=== PATIENT | female | born 2000 | race Two or more races ===

== ENCOUNTER 2025-03-13 23:46 | Emergency (ER) | payer OTHER, SELFPAY ==
--- NOTE | 2025-03-14 00:12 | ED_ITS ---
Discharge Plan Disposition Patient Disposition: Home, Self-Care Referrals Follow up/Referrals: Provider,Referral, MD [Primary Care Provider, Medical] - See instructions Activity Restrictions/Add. Instructions Additional Instructions/Restrictions: Recommend taking Benadryl as needed for hives and itching. Consider taking a longer acting daily antihistamine such as cetirizine or loratadine. If symptoms continue to persist, see your PCP and/or follow-up with an maintenance instructor. Clinical Impressions Clinical Impression: Acute idiopathic urticaria Print Language Print Language: Upper Sorbian Discharge ED Provider: Hussein Arechiga General Adult HPI General Chief complaint: Allergic Reaction Stated complaint: bumps all over, face swelling, itching Time Seen by Provider: 03/14/25 00:00 History of Present Illness HPI narrative: 25-year-old female with history of pituitary adenoma presents for itching and rash. She noted symptoms when she woke up around 10 PM this evening. She reports that this happened before. She denies any known allergies. She denies any chest pain abdominal pain shortness of breath nausea vomiting diarrhea etc. no new medications, no new exposures, she did eat some [employer] earlier. She reports she feels like her forte is a bit more swollen than normal. Related Data Allergies Allergy/AdvReac Type Severity Reaction Status Date / Time No Known Allergies Allergy Verified 03/14/25 00:26 [facility] Disclaimer: The information contained in this section may have been updated after the patient was seen, as this information can be updated by other users. Social History Smoking Status: Never smoker alcohol intake: never current occupational status: other Travel in the last 8 weeks?: None ROS Obtained: Yes All systems reviewed & no additional complaints except as documented Physical Exam General General appearance: alert and in no apparent distress Head Head exam: atraumatic and normocephalic Eye Eye exam: Present normal appearance, PERRL and EOMI ENT ENT exam: Present normal oropharynx and normal external ear exam Neck Neck exam: Present normal inspection and full ROM Chest Chest inspection: Present normal inspection and symmetric chest wall rise; Absent tenderness Respiratory Respiratory exam: Present normal lung sounds bilaterally; Absent respiratory distress Cardiovascular Cardiovascular exam: Present regular rate and normal rhythm Abdominal Exam Abdominal exam: Present soft; Absent distention, tenderness or guarding Extremities Exam Extremities exam: Present normal inspection; Absent edema or joint swelling Back Exam Back exam: Present normal inspection; Absent tenderness Neurological Exam Neurological exam: Present alert and oriented X3; Absent motor sensory deficit Psychiatric Psychiatric exam: Present normal affect and normal mood Skin Skin exam: Present warm, dry, normal color and rash (Hives noted) Lymphatic Lymphatic Findings: no adenopathy Medical Decision Making Medical Records Medical records reviewed: Yes I reviewed the patient's medical records. Screening: Per USPSTF and CDC recommendations, given the prevalence of disease in our region, it is our hospital?s policy to screen for HIV and viral Hepatitis for all patients aged 18 and over and those with ongoing risk factors. Valerio Inquiry Pt receiving controlled substance: No Valerio was queried for this patient: No Vital Signs: 03/14/25 00:19 03/14/25 00:27 Temperature 98.0 F 98.0 F Temperature Source Oral Oral Pulse Rate 100 H Pulse Rate [Left Radial] 100 H Respiratory Rate 17 17 Blood Pressure 147/83 H Blood Pressure [Right Arm] 147/83 H Blood Pressure Mean [Right Arm] 104 Blood Pressure Source Automatic Cuff Blood Pressure Source [Right Arm] Automatic Cuff Blood Pressure Position Supine Blood Pressure Position [Right Arm] Supine 02 Sat by Pulse Oximetry 95 Oxygen Delivery Method Room Air Room Air Lab Data Lab results reviewed: Yes I reviewed the patient's lab results. Medical Decision Narrative: 25-year-old female with history of pituitary adenoma presents for a few hours of hives. History was obtained via interactive discussion with patient. On arrival, patient is [afebrile, hemodynamically stable, satting appropriately, alert, oriented x4, GCS 15], moving all extremities spontaneously. Full physical exam performed and significant for hives, no intraoral swelling, no abdominal tenderness, clear lungs bilaterally Differential includes but is not limited to idiopathic urticaria, angioedema, anaphylaxis, allergic reaction. No evidence of anaphylaxis, angioedema or other emergent condition. Unclear underlying etiology, possibly viral. These findings were communicated patient, she was encouraged to use Benadryl and [id number] antihistamines as needed and follow-up with PCP. Strict return precautions are given for signs of emergent condition. Procedures Risk/Benefits of Procedure(s) Were Explained: Yes Critical Care Critical Care Time Critical Care Time: No
[2025-03-14 00:19] VITALS: BP 147/83; PULSE 100; RESP 17; TEMP 36.7; O2SAT 95; BMI 28.3
--- OUTSIDE RECORDS SUMMARY | 2025-03-14 00:20 | XMS_ITS | Continuity of Care Document ---
Author Organization [facility], ENDOCRINOLOGY [place] Address [address] [place] [address] Care Team Providers Care Basting Puller Name Role Phone MARYAM CRAWFORD Retoucher Photoengraving STEFAN CERRATO Primary Care Provider Assessment No assessment recorded. Plan of Treatment Reminders Order Date Submit Date Provider Last Modified By Organization Details Last Modified Time Details Appointments ANNUA L METHODS SPECIALIST ENGINEER 2024 03:45P M DR JACOBS Not available Not available Not available NEW PATIE NT O 2025 09:15A M NAVID BANUELOS MD Not available Not available Not available RECHE CK 2025 01:30P M MARYAM CRAWFORD APRN Not available Not available Not available Lab None recor ded. Referral neuro logis t refer ral - frequ ent heada ches with leida l prola ctin level s. histo ry of pitui tary micro adeno ma. [address] [facility] Neurology, [address] [facility], [place], [address], 02/27/2025 14:14:48 Procedures None recor ded. Surgeries None recor ded. Imaging None recor ded. Medication Orders caber golin e 0.5 mg table t 2024 025 [facility] [place], [address], 02/27/2025 08:55:29 Patient TargetsNo targets recorded. Patient InstructionsNo instructions recorded. Reason for Referral Neurologist Referral for Pit uitary microadenoma frequent headaches with normal prolactin levels. history of pituitary microadenoma. Referring Physician: Maryam Crawford, Endocrinology, Encounter Date: 02/27/2025 Results Created Date Observation Date Name Description Value Unit Range Abnormal Flag Note LastModifiedBy Organization Detail LastModifiedTime 02/28/20 25 02/27/2025 [facility] prolactin 9.03 NG/mL 4.79-2 3.30 normal Refer ence range is based on non-p regna nt women . Not Available [facility] [address] [place] [address], [phone], 02/27/2025 09:18:43 Result Notes None recorded. Problems Name Problem SNOMED Code Status Onset Date Resolution Date Notes Provider Name and Address Organization Details Recorded Time Hyperprolactin emia 343159470 Active 2023 ELI CERVANTES MD [address] [place] [id number] [place] [address] 4 14:02:48 Pituitary microadenoma 098456474 Active 2024 STEFAN CERRATO PA-C [address] [place] [phone] [place] [address] 5 13:01:51 Problem Notes Documentation Provider Name and Address Organization Details Recorded Time Endocrinology Consult Note : [place] [id number] DIAZ (Legal name: Zari Harrison) (id #[id number], : 2000) [address] [address] Encounter Summary - Progress Note Date Printed: 02/27/2025 Documents sent via fax will include the followingmessage: This fax may contain sensitive and confidential personal health information that is being sent for the sole use of the intended recipient. Unintended recipients are directed to securely destroy any materials received. You are hereby notified that the unauthorized disclosure or other unlawful use of this fax or any personal health information is prohibited. To the extent patient information contained in this fax is subject to 42 CFR Part 2, this regulation prohibits unauthorized disclosure of these records. If you received this fax in error, please visit [email or web address] to notify the sender and confirm that the information will be destroyed. If you do not have internet access, please call to notify the sender and confirm that the information will be destroyed. Thank you for your attention and cooperation. [ID:[id number]] Patient Zari Cain (25yo, F) #[id number] 2000 Patient Demographics: Address [address] [place] [address] Work Phone Encounter Notes: Encounter Reason/DateNone recorded 02/27/2025 - 08:45AM - ENDOCRINOLOGY [place] History of Present IllnessSophie is a 25-year-old female presents office today for follow-up on pituitary microadenoma, currently on cabergoline therapy at 0.25 mg once a week and is tolerating without difficulty.She does state some improvement in symptoms associated with hyperprolactinemia and states menstrual cycles have returned, however she does continue to report frequent headaches. Review of SystemsROS as noted in the HPI Vitals Ht: 5 ft 1 in02/27/2025 08:28 am Wt: 150 lbs104/29/2024 08:37 am BMI: 28.311 08:37 am BP: 118/7002/27/2025 08:39 am Pulse: 76 bpm02/27/2025 08:39 am Results/Interpretations Physical ExamConstitutional:General Appearance: healthy-appearing, well-nourished, well-developed, not anxious/nervous, and no sweating. Level of Distress: no acute distress. Ambulation: ambulating normally. Eyes:Lids and Conjunctivae: no discharge, pallor, lid lag, or periorbital edema and non-injected. Neck:Neck: supple, trachea midline, no masses, and full range of motion. Thyroid: no enlargement or nodules and non-tender. Lymph Nodes: no anterior cervical LAD, posterior cervical LAD, submandibular LAD, submental LAD, preauricular LAD, or supraclavicular LAD. Cardiovascular:Heart Auscultation: normal S1 and S2 and regular rate and rhythm. Lungs:Auscultation: breath sounds normal, good air movement, clear to auscultation, and no wheezing. Musculoskeletal::Motor Strength and Tone: normal tone and motor strength. Joints, Bones, and Muscles: normal movement of all extremities. Extremities: no edema. Neurologic:Gait and Station: normal gait and station. Psychiatric:Insight: good judgement and insight. Mental Status: normal mood and affect, no diffuse anxiety or paranoid ideations, and active and alert. Orientation: to time, place, and person. Procedure DocumentationNone recorded Assessment and Plan1. Pituitary microadenoma-Initial prolactin 120 March 2024MRI brain with attention to pituitary from May 15, 2024 showed: Cystic-appearing lesion in the anterior aspect of the pituitary gland which may represent a cystic pituitary microadenoma or benign cyst. Patient currently taking cabergoline 0.25 mg once a week and is tolerating without difficulty.She does state some improvement in symptoms associated with hyperprolactinemia and states menstrual cycles have returned, however she does continue to report frequent headaches.Most recent labs from today show prolactin level now within normal range at 9.03 RecommendationsWe will continue current cabergoline therapy at 0.25 mg once a weekFollow-up in 3 monthsNeurology consult for frequent headaches. Patient states understanding of the above plan of care and with no questions or concerns at this time.D35.2: Benign neoplasm of pituitary gland cabergoline 0.5 mg tablet - Take 0.5 tablet(s) every week by oral route for 90 days. Qty: (7) tablet Refills: 1 Pharmacy: [facility] NEUROLOGIST REFERRAL - Schedule Within: provider's discretion Note to Provider: frequent headaches with normal prolactin levels. history of pituitary microadenoma.Place of service: OFFICE Procedure code: 65951, 51939, 39561, 12430, [address], [address], [address]339, [address] Return to Office ELI JACOBS MD for ANNUAL METHODS SPECIALIST ENGINEER at [facility] on 04/02/2025 at 03:45 PM MARYAM CRAWFORD APRN for RECHECK at ENDOCRINOLOGY on 06/05/2025 at 01:30 PM Patient Medical History: Allergies List Reviewed Allergies NKDA Medications Reviewed Medications NameDate Source cabergoline 0.5 mg tabletTake 0.5 tablet(s) every week by oral route for 90 days. Note:Take 1/2 tablet every Uvcmxa28/11/25 prescribed MARYAM CRAWFORD APRN clotrimazole-betamethasone 1 %-0.05 % topical creamAPPLY TO THE AFFECTED AND SURROUNDING AREAS OF SKIN BY TOPICAL ROUTE 2 TIMES PER DAY IN THE MORNING AND EVENING FOR 2 WEEKS Internal Note:PRN105/24/23 prescribed STEFAN CERRATO PA-C Family HistoryFamily History not reviewed (last reviewed 06/21/2024) Maternal Grandmother - Diabetes mellitus Past Medical HistoryPast Medical History not reviewed (last reviewed 06/21/2024) Asthma:Y-As a child Vaccine HistoryNone recorded Electronically Signed by: MARYAM CRAWFORD APRN, PRESCHOOL SPECIAL EDUCATION TEACHER STEFAN CERRATO PA-C [address] [place] [address], [phone], [facility] 02/27/2025 13:01:55 Medical Equipment None Reported. Allergies No known drug allergies Medications Name Sig Start Date Stop Date Status Note LastModified by Organization Details LastModified Time clotrimazole -betamethaso ne 1 %-0.05 % topical cream APPLY TO THE AFFECTED AND SURROUNDING AREAS OF SKIN BY TOPICAL ROUTE 2 TIMES PER DAY IN THE MORNING AND EVENING FOR 2 WEEKS 2023 active PRN Not Available Not Available Not Avai lable cabergoline 0.5 mg tablet Take 0.5 tablets every week by oral route for 90 days. 2024 active Not Available Not Available Not Avai lable Vitals Date Recorded Body height Body mass index (BMI) Body weight Heart rate Systolic And Diastolic Provider Name and Address Organization Details Last Updated DateTime 02/27/2025 154.94 cm 28.3 kg/m2 67119.86 g 76 /min 118/70 mm[Hg] Joelle Morton [facility] 02/27/2025 08:39:26 Social History Question Answer Notes LastModified by Organizat ion Details LastModified Time Tobacco Smoking Status Never Smoker Kristopher Herndon [facility] 03/23/2024 15:09:10 What Is Your Level Of Caffeine Consumption? None Information not available 03/28/2024 What Was The Date Of Your Most Recent Tobacco Screening? 03/28/2024 Information not available 03/28/2024 What Is Your Relationship Status? Single [email or web address] Information not available 03/23/2024 Has Tobacco Cessation Counseling Been Provided? No Information not available 03/28/2024 Sex: Female Functional Status Question Answer Note LastModified by Organizat ion Details LastModified Time Do you use any illicit or recreational drugs? No Information not available 03/23/2024 Do you or have you ever used any other forms of tobacco or nicotine? No [email or web address] Information not available 03/23/2024 What is your level of alcohol consumption? None [email or web address] Information not available 03/23/2024 Mental Status None recorded. Family History Relationship Description Onset Age of this Age Resolved Age Notes LastModified by Organization Details LastModified Time Maternal Grandmother Diabetes mellitus [email or web address] Not available 03/23 15:08:54 Medical History Condition Response Coronary Artery Disease N Other N Gout N Atrial Fibrillation N Kidney Stones N Hyperthyroidism N Blood Transfusion N Depression N COPD N Hypothyroidism N Lung Disease N Breast Problem N Difficulty Swallowing N Meniere's disease N Anxiety Disorder N Muscle, Joint, or Bone Problems N Vision or Eye Problems Y Arthritis N Polyps N Infertility N Blood Clot N Cancer N Varicosities N Stroke N Endometriosis N Bladder or Kidney Problems N High Cholesterol N Liver Disease N Fibromyalgia N Headaches Y Kidney Disease N Allergies/Hayfever N Heart Problems N Parkinson's Disease N Ear or Hearing Problems N Hospitalizations N Alzheimer's N Thyroid Problems N GI Problems N Skin Problems Y Eating Disorder N Anemia N Constipation Y Mental Illness N Ovarian Cancer N Diabetes N Seizures/Epilepsy N Tuberculosis N Eczema Y Diverticulitis N Asthma Y Reflux/GERD Y Sleep Apnea N GERD/Reflux Y Hepatitis N Heart Disease N Pulmonary Embolism N Pre-Eclampsia N Hypertension N Chronic Ear Infections N Osteoporosis N Chicken Pox Y Thrombophilias N Gynecological History Statement/Question Response Abnormal Pap N Flow Moderate Regular Cycles N Date of LMP 07/18/2022 Post Menopausal Bleeding N STIs/STDs N HPV Vaccine N Duration of Flow (days) 5 Age at Menarche 16 Current Control Method None Sexually Active? Y Menses Monthly N LMP Approximate Ovarian Cancer Screening? N Obstetrics History GPAL:G 0 P 0 0 0 0 Immunizations Vaccine Type Date Status Note Provider Nam e and Address Organization Details Recorded Time Tdap 6 completed Not Available [facility] 02/27/2025 12:44:34 meningococcal MCV4, unspecified formulation 9 completed Not Available [facility] 02/27/2025 12:44:34 DTaP-Hep B-IPV 9 completed Not Available [facility] 02/27/2025 12:44:34 Hep A, ped/adol, 2 dose 9 completed Not Available [facility] 02/27/2025 12:44:34 MMRV 9 completed Not Available [facility] 02/27/2025 12:44:34 Pneumococcal conjugate PCV 13 9 completed Not Available [facility] 02/27/2025 12:44:34 HPV9 9 completed Not Available [facility] 02/27/2025 12:44:34 meningococcal B, OMV 9 completed Not Available [facility] 02/27/2025 12:44:34 IPV 9 completed Not Available [facility] 02/27/2025 12:44:34 Hep B, adolescent or pediatric 9 completed Not Available [facility] 02/27/2025 12:44:34 meningococcal B, OMV 9 completed Not Available [facility] 02/27/2025 12:44:34 HPV9 9 completed Not Available [facility] 02/27/2025 12:44:34 Past Encounters Encounter ID Performer Location Encounter Start Date Encounter Closed Date Diagnosis/Indication Diagnosis SNOMED-CT Code Diagnosis ICD10 Code Diagnosis IMO Codes Diagnosis Note [id number] MARYAM CRAWFORD APRN [facility] [address] [place] [address] 02/27/2025 08:26:57 02/27/2025 09:09:50 Pituitary microadenoma 677304770 D35.2 Initial prolactin 120 March 2024MRI brain with attention to pituitary from May 15, 2024 showed: Cystic-francia earing lesion in the anterior aspect of the pituitary gland which may represent a cystic pituitary microadeno ma or benign cyst. Patient currently taking cabergolin e 0.25 mg once a week and is tolerating without difficulty .She does state some improvemen t in symptoms associated with hyperprola ctinemia and states menstrual cycles have returned, however she does continue to report frequent headaches. Most recent labs from today show prolactin level now within normal range at 9.03 Recommenda tionsWe will continue current cabergolin e therapy at 0.25 mg once a weekFollow -up in 3 monthsNeur ology consult for frequent headaches. Patient states understand ing of the above plan of care and with no questions or concerns at this time. Health Concerns Section Related Observation LastModified by Organization Detai ls LastModified Time None Recorded Concern Status LastModified by Organization Details LastModified Time None Recorded Payers Encounter Date Sequence Insurance Name Policy Number Policy Bray Covered Member ID Bray Member ID Guarantor Name 02/27/2025 1 [facility] ([facility]) [id number] Zari Harrison [id number] Zari Harrison Notes Date Note Type Note Provider Name and Address Organization Details Recorded Time 02/27/2025 text/html ROS as noted in the HPI Tressa is a 25-year-old female presents office today for follow-up on pituitary microadenoma, currently on cabergoline therapy at 0.25 mg once a week and is tolerating without difficulty.She does state some improvement in symptoms associated with hyperprolactinemia and states menstrual cycles have returned, however she does continue to report frequent headaches. MARYAM CRAWFORD, TOW TRUCK DRIVER [address] [facility] [place], [address], [facility] 02/27/2025 12:33:36 OBGyn Episode No OBEpisode recorded.
--- OUTSIDE RECORDS SUMMARY | 2025-03-14 00:20 | XMS_ITS | Data Portability ---
Author Organization [facility] Address [address] [place] [address] Care Team Providers Care Storage Facility Rental Clerk Name Role Phone MARYAM CRAWFORD Build Automation Engineer STEFAN CERRATO Primary Care Provider Assessment No assessment recorded. Plan of Treatment Reminders Order Date Submit Date Provider Last Modified By Organization Details Last Modified Time Details Appointments ANNUA L CORE WINDER 2024 03:45P M DR JACOBS Not available Not available Not available NEW PATIE NT O 2025 09:15A M NAVID BANUELOS MD Not available Not available Not available ILYA CK 2025 01:30P M MARYAM CRAWFORD DAY WORKER Not available Not available Not available Lab prola ctin, serum 2024 025 [facility], [address] [place] [address], [id number], 06/19/2024 09:41:18 corti azael, serum or plasm a 2023 024 [facility], [address] [place] [address], [phone], 04/05/2024 10:05:09 prola ctin, serum 2023 024 [facility], [address] [place] [address], [address], 04/05/2024 10:05:06 acth, plasm a 2023 024 [facility], [address] [place] [address], [address], 04/08/2024 19:01:58 insul in, serum 2023 [facility], [address] [place] [address], [address], 04/05/2024 10:05:11 dhea- sulfa te, serum 2023 024 [facility], [address] [place] [address], [address], 04/05/2024 10:05:10 testo stero ne, total , serum 2023 [facility], [address] [place] [address], [address], 04/05/2024 10:05:07 CMP, serum or plasm a 2023 [facility], [address] [place] [address], [address], 04/05/2024 11:49:01 glyco hemog lobin , total , blood 2023 [facility], [address] [place] [address], [address], 04/05/2024 08:56:19 Referral neuro logis t refer ral - frequ ent heada ches with doris l prola ctin level s. histo ry of pitui tary micro adeno ma. 2024 [email or web address] [id number] [facility], [address] [place], [address], 02/27/2025 14:14:48 Procedures None recor ded. Surgeries None recor ded. Imaging None recor ded. Medication Orders caber golin e 0.5 mg table t 2024 [facility] [place], [address], 02/27/2025 08:55:29 caber golin e 0.5 mg table t 2024 025 [facility], [address] [place], [address], 09/27/2024 08:34:24 caber golin e 0.5 mg table t 2024 025 [facility] [place], [address], 06/21/2024 15:20:25 caber golin e 0.5 mg table t 2024 025 [facility] [place], [address], 05/19/2024 15:31:25 Patient TargetsNo targets recorded. Patient InstructionsNo instructions recorded. Reason for Referral Neurologist Referral for Pit uitary microadenoma frequent headaches with normal prolactin levels. history of pituitary microadenoma. Referring Physician: Maryam Crawford, Endocrinology, Encounter Date: 02/27/2025 Results Created Date Observation Date Name Description Value Unit Range Abnormal Flag Note LastModifiedBy Organization Detail LastModifiedTime 03/23/20 24 03/23/2024 BETA HCG, PREGN EITAN beta HCG, <5 m[IU] /mL 0-5 normal EXPEC CLARITA HCG LEVEL S WEEKS OF GESTA TION HCG LEVEL (mIU/ mL) 3 5.8 - 71.2 4 9.5 - 750 5 217 - 7138 6 158 - 31,79 5 7 3697 - 163,5 63 8 32,06 5 - 149,5 71 9 63,80 3 - 151,4 10 10 46,50 9 - 186,9 77 12 27,83 2 - 210,6 12 14 13,95 0 - 62,53 0 15 12,03 9 - 70,97 1 16 9040 - 56,45 1 17 8175 - 55,86 8 18 8099 - 58,17 6 Not Available [facility] [address] [place], [address], 03/23/2024 18:42:06 03/23/20 24 03/23/2024 TSH WITH REFLE X FT4 TSH with reflex FT4 0.738 u[IU] /mL 0.270- 4.200 normal Not Available [facility] [address] [place], [address], 03/23/2024 18:44:10 03/23/20 24 03/23/2024 LUTEN IZING HORMO NE lutenizing hormone 10.7 m[IU] /mL 1.0-95 .6 normal LH EXPEC CLARITA VALUE S WOMEN : FOLLI CULAR PHASE 2.4-1 2.6 mIU/m L OVULA TION PHASE 14.0- 95.6 mIU/m L LUTEA L PHASE 1.0-1 1.4 mIU/m L POSTM ENOPA USE 7.7-5 8.5 mIU/m L . Not Available [facility] [address] [place], [address], 03/23/2024 18:44:12 03/23/20 24 03/23/2024 ESTRA DIOL estradiol 34.4 pg/mL 0.0-39 8.0 normal Refer ence range is based on non-p regna nt women . NOTE: Due to the risk of cross -reac tivit y, the Marvin Estra diol assay used by our labor john ortega not be order ed when monit oring estra diol level s in patie nts being treat ed with Fulve stran t. An alter miya metho d such as LC/MS , which is not expec clarita to show cross -reac tivit y to jyoti Hutchinson be used to measu re estra diol veena ntrat ions. Stero id drugs may inter fere with this test. ESTRA DIOL EXPEC CLARITA VALUE S HEALT HY WOMEN : FOLLI CULAR PHASE 12.4 - 233 pg/mL OVULA TION PHASE 41.0 - 398 pg/mL LUTEA L PHASE 22.3 - 341 pg/mL POSTM ENOPA USE < 5.0 - 138 pg/mL HEALT HY PREGN ANT WOMEN : 1st TRIME STER 154 - 3243 pg/mL 2nd TRIME STER 1561 - 21,28 0 pg/mL 3rd TRIME STER 8525 - > 30,00 0 pg/mL . Not Available [facility] [address] [place] [address], [address], 03/23/2024 18:44:14 03/23/20 24 03/23/2024 FOLLI NERY STIM. HORMO NE follicle stim. hormone 7.3 m[IU] /mL 1.7-13 4.8 normal FSH EXPEC CLARITA VALUE S FEMAL ES: FOLLI CULAR PHASE : 3.5 - 12.5 MIU/M L OVULA TION PHASE : 4.7 - 21.5 MIU/M L LUTEA L PHASE : 1.7 - 7.7 MIU/M L POST MENOP AUSE: 25.8 - 134.8 MIU/M L . Not Available [facility] [address] [place], [address], 03/23/2024 18:44:16 03/23/20 24 03/23/2024 PROLA CTIN prolactin 120.00 NG/mL 4.79-2 3.30 high Refer ence range is based on non-p regna nt women . Not Available [facility] [address] [place], [address], 03/23/2024 18:44:17 03/23/20 24 03/23/2024 PROGE STERO NE, SERUM /PLAS MA progesterone , serum/plasma 0.32 NG/mL 0.00-2 3.90 normal Refer ence range is based on non-p regna nt women . PROGE STERO NE EXPEC CLARITA VALUE S WOMEN : FOLLI CULAR PHASE 0.06 - 0.90 ng/mL OVULA TION PHASE 0.12 - 12.0 ng/mL LUTEA L PHASE 1.83 - 23.9 ng/mL POSTM ENOPA USE 0.00 - 0.13 ng/mL 1st Trime ster 11.0 - 44.3 ng/mL 2nd Trime ster 25.4 - 83.3 ng/mL 3rd Trime ster 58.7 - 214.0 ng/mL . Not Available [facility] [address] [place] [address], [address], 03/23/2024 18:44:19 03/23/20 24 03/23/2024 COMPL ETE BLOOD COUNT white blood cells 8.1 10*3/ uL 3.8-10 .8 normal Not Available [facility] [address] [place] [address], [address], 03/23/2024 19:11:21 03/23/20 24 03/23/2024 COMPL ETE BLOOD COUNT red blood cells 4.76 10*6/ uL 3.80-5 .20 normal Not Available [facility] [address] [place] [address], [address], 03/23/2024 19:11:21 03/23/20 24 03/23/2024 COMPL ETE BLOOD COUNT hemoglobin 13.7 g/dL 12.0-1 6.0 normal Not Available [facility] [address] [place] [address], [address], 03/23/2024 19:11:21 03/23/20 24 03/23/2024 COMPL ETE BLOOD COUNT hematocrit 39.3 % 35.0-4 7.0 normal Not Available [facility] [address] [place] [address], [address], 03/23/2024 19:11:21 03/23/20 24 03/23/2024 COMPL ETE BLOOD COUNT MCV 83 fL 80-100 normal Not Available [facility] [address] [place] [address], [address], 03/23/2024 19:11:21 03/23/20 24 03/23/2024 COMPL ETE BLOOD COUNT MCH 29 pg 26-35 normal Not Available [facility] [address] [place] [address], [address], 03/23/2024 19:11:21 03/23/20 24 03/23/2024 COMPL ETE BLOOD COUNT MCHC 35 g/dL 32-36 normal Not Available [facility] [address] [place] [address], [address], 03/23/2024 19:11:21 03/23/20 24 03/23/2024 COMPL ETE BLOOD COUNT RDW 13.0 % 11.0-1 5.0 normal Not Available [facility] [address] [place] [address], [address], 03/23/2024 19:11:21 03/23/20 24 03/23/2024 COMPL ETE BLOOD COUNT MPV 7.6 fL 6.2-10 .5 normal Not Available [facility] [address] [place] [address], [address], 03/23/2024 19:11:21 03/23/20 24 03/23/2024 COMPL ETE BLOOD COUNT platelet count 354 10*3/ uL 150-40 0 normal Not Available [facility] [address] [place] [address], [address], 03/23/2024 19:11:21 03/23/20 24 03/23/2024 COMPL ETE BLOOD COUNT neutrophil,a bsolute 4.0 10*3/ uL 1.6-8. 4 normal Not Available [facility] [address] [place] [address], [address], 03/23/2024 19:11:21 03/23/20 24 03/23/2024 COMPL ETE BLOOD COUNT lymphocyte,a bsolute 3.3 10*3/ uL 0.4-5. 1 normal Not Available [facility] [address] [place] [address], [address], 03/23/2024 19:11:21 03/23/20 24 03/23/2024 COMPL ETE BLOOD COUNT monocyte,abs olute 0.5 10*3/ uL 0.0-1. 2 normal Not Available [facility] [address] [place] [address], [address], 03/23/2024 19:11:21 03/23/20 24 03/23/2024 COMPL ETE BLOOD COUNT eosinophil,a bsolute 0.3 10*3/ uL 0.0-0. 8 normal Not Available [facility] [address] [place] [address], [address], 03/23/2024 19:11:21 03/23/20 24 03/23/2024 COMPL ETE BLOOD COUNT basophil,abs olute 0.0 10*3/ uL 0.0-0. 3 normal Not Available [facility] [address] [place] [address], [address], 03/23/2024 19:11:21 03/23/20 24 03/23/2024 COMPL ETE BLOOD COUNT % neutrophils 49.3 % 42.0-7 8.0 normal Not Available [facility] [address] [place] [address], [address], 03/23/2024 19:11:21 03/23/20 24 03/23/2024 COMPL ETE BLOOD COUNT % lymphocytes 41.0 % 11.0-4 7.0 normal Not Available [facility] [address] [place] [address], [address], 03/23/2024 19:11:21 03/23/20 24 03/23/2024 COMPL ETE BLOOD COUNT % monocytes 6.1 % 0.0-11 .0 normal Not Available [facility] [address] [place] [address], [address], 03/23/2024 19:11:21 03/23/20 24 03/23/2024 COMPL ETE BLOOD COUNT % eosinophils 3.2 % 0.0-7. 0 normal Not Available [facility] [address] [place] [address], [address], 03/23/2024 19:11:21 03/23/20 24 03/23/2024 COMPL ETE BLOOD COUNT % basophils 0.4 % 0.0-3. 0 normal Not Available [facility] [address] [place] [address], [address], 03/23/2024 19:11:21 03/23/20 24 03/23/2024 COMPL ETE BLOOD COUNT nucleated red cells 0.0 % 0.0-0. 9 normal Not Available [facility] [address] [place] [address], [address], 03/23/2024 19:11:21 03/23/20 24 03/23/2024 COMPL ETE BLOOD COUNT nucleated RBCs, absolute 0.00 10*3/ uL not estab. normal Not Available [facility] [address] [place] [address], [address], 03/23/2024 19:11:21 03/28/20 24 03/30/2024 CHLAM YDIA/ GC, RNA chlamydia trachomatis NEGATI VE negati ve normal Not Available [facility] [address] [place] [address], [address], 03/30/2024 17:14:08 03/28/20 24 03/30/2024 CHLAM YDIA/ GC, RNA N. gonorrhoeae NEGATI VE negati ve normal Test metho dolog y is Nucle ic Acid Ampli ficat ion (NAAT ) Not Available [facility] [address] [place] [address], [address], 03/30/2024 17:14:08 03/28/20 24 03/28/2024 PAP SMEAR Pap smear SEE BELOW normal Depar tment of Patho logy GYNEC OLOGI JUDSON CYTOL OGY REPOR T NAME: KIP THOMAS PATHO LOGY NO.: [id number] 2 Copy to: [facility] E OF SPECI MEN: CERVI JUDSON/E NDOCE RVICA L-THI N PREP RELEV ANT HISTO RY: SPECI MEN ADEQU ACY SATIS FACTO RY FOR EVALU ATION . ENDOC ERVIC AL/TR ANSFO RMATI ON ZONE COMPO NENT PRESE NT GENER AL CATEG ORIZA TION NEGAT KASANDRA FOR INTRA EPITH ELIAL LESIO N OR MALIG CRIS GERALDO MontillaN DOMINIC S, CT (ASCP ) Jayleen d Out Date: 04/04 14:13 Cervi judson/v agina l cytol ogy is a scree rayo test with a recog nized false negat kasandra rate. New techn ologi es may decre ase, but will not elimi miya false negat kasandra resul ts. Regul ar cytol ogy scree rayo is recom petra d to minim ize false negat kasandra resul ts. The ThinP rep(R ) Imagi ng syste m is used to sivan t in prima ry cervi judson cance r scree rayo of ThinP rep(R ) Pap test slide s. Page 1 of 1 Not Available [facility] [address] [place], [address], 04/04/2024 14:13:56 04/05/20 24 04/05/2024 GLYCO HEMOG LOBIN A1C glyco HGB A1C 4.9 % 0.0-5. 6 normal Not Available [facility] [address] [place], [address], 04/05/2024 08:56:19 04/05/20 24 04/05/2024 GLYCO HEMOG LOBIN A1C estimated avg. glucose 94 mg/dL _(ujdson c) normal A1c value s betwe en 5.7% to 6.4% indic ate predi abete s. Resul ts 6.5% or great er is diagn ostic of diabe david. Ameri can Diabe david Assoc iatio n (diab etes. org) Not Available [facility] [address] [place], [address], 04/05/2024 08:56:19 04/05/20 24 04/05/2024 PROLA CTIN prolactin 129.00 NG/mL 4.79-2 3.30 high Refer ence range is based on non-p regna nt women . Not Available [facility] [address] [place] [address], [address], 04/05/2024 10:05:06 04/05/20 24 04/05/2024 TESTO STERO NE, TOTAL testosterone , total 45 NG/dL 8-48 normal Refer ence range is for age 20-49 years . Not Available [facility] [address] [place] [address], [address], 04/05/2024 10:05:07 04/05/20 24 04/05/2024 CORTI AZAEL cortisol 4.64 ug/dL 2.68-1 8.40 normal CORTI AZAEL DORIS L RANGE S: 6 am to 10 am 6.02 - 18.4 ug/dL 4 pm to 8 pm 2.68 - 10.5 ug/dL . Not Available [facility] [address] [place] [address], [address], 04/05/2024 10:05:08 04/05/20 24 04/05/2024 DHEA SULFA TE DHEA sulfate 299.0 ug/dL 148.0- 407.0 normal Not Available [facility] [address] [place] [address], [address], 04/05/2024 10:05:09 04/05/20 24 04/05/2024 INSUL IN insulin 16.1 uu/mL 2.6-24 .9 normal Not Available [facility] [address] [place] [address], [address], 04/05/2024 10:05:11 04/05/20 24 04/05/2024 PREGN EITAN TEST, URINE test,urine NEGATI VE negati ve normal Not Available [facility] [address] [place] [address], [address], 04/05/2024 10:36:45 04/05/20 24 04/05/2024 PREGN EITAN TEST, URINE protein Negati ve mg/dL negati ve normal Not Available [facility] [address] [place] [address], [address], 04/05/2024 10:36:45 04/05/20 24 04/05/2024 PREGN EITAN TEST, URINE blood Negati ve /uL negati ve normal Not Available [facility] [address] [place] [address], [address], 04/05/2024 10:36:45 04/05/20 24 04/05/2024 PREGN EITAN TEST, URINE specific gravity 1.026 1.003- 1.035 normal Not Available [facility] [address] [place] [address], [address], 04/05/2024 10:36:45 04/05/20 24 04/05/2024 COMP. METAB OLIC PANEL glucose 95 mg/dL 74-100 normal Not Available [facility] [address] [place] [address], [address], 04/05/2024 11:49:01 04/05/20 24 04/05/2024 COMP. METAB OLIC PANEL blood urea nitrogen 9 mg/dL 6-20 normal Not Available [facility] [address] [place] [address], [address], 04/05/2024 11:49:01 04/05/20 24 04/05/2024 COMP. METAB OLIC PANEL creatinine 0.70 mg/dL 0.50-0 .95 normal Not Available [facility] [address] [place] [address], [address], 04/05/2024 11:49:01 04/05/20 24 04/05/2024 COMP. METAB OLIC PANEL BUN/creatini ne ratio 13 (calc ) 10-20 normal Not Available [facility] [address] [place] [address], [address], 04/05/2024 11:49:01 04/05/20 24 04/05/2024 COMP. METAB OLIC PANEL sodium 141 mmol/ L 136-14 5 normal Not Available [facility] [address] [place] [address], [address], 04/05/2024 11:49:01 04/05/20 24 04/05/2024 COMP. METAB OLIC PANEL potassium 3.8 mmol/ L 3.4-5. 0 normal Not Available [facility] [address] [place] [address], [address], 04/05/2024 11:49:01 04/05/20 24 04/05/2024 COMP. METAB OLIC PANEL chloride 106 mmol/ L 98-107 normal Not Available [facility] [address] [place] [address], [address], 04/05/2024 11:49:01 04/05/20 24 04/05/2024 COMP. METAB OLIC PANEL carbon dioxide 22 mmol/ L 22-31 normal Not Available [facility] [address] [place] [address], [address], 04/05/2024 11:49:01 04/05/20 24 04/05/2024 COMP. METAB OLIC PANEL anion gap 13 (calc ) 7-25 normal Not Available [facility] [address] [place] [address], [address], 04/05/2024 11:49:01 04/05/20 24 04/05/2024 COMP. METAB OLIC PANEL calcium 9.1 mg/dL 8.6-10 .2 normal Not Available [facility] [address] [place] [address], [address], 04/05/2024 11:49:01 04/05/20 24 04/05/2024 COMP. METAB OLIC PANEL total protein 7.3 g/dL 6.4-8. 3 normal Not Available [facility] [address] [place] [address], [address], 04/05/2024 11:49:01 04/05/20 24 04/05/2024 COMP. METAB OLIC PANEL albumin 4.5 g/dL 3.5-5. 2 normal Not Available [facility] [address] [place] [address], [address], 04/05/2024 11:49:01 04/05/20 24 04/05/2024 COMP. METAB OLIC PANEL globulin 2.8 1.5-4. 5 normal Not Available [facility] [address] [place] [address], [address], 04/05/2024 11:49:01 04/05/20 24 04/05/2024 COMP. METAB OLIC PANEL albumin/glob ulin ratio 1.6 (calc ) 1.1-2. 5 normal Not Available [facility] [address] [place] [address], [address], 04/05/2024 11:49:01 04/05/20 24 04/05/2024 COMP. METAB OLIC PANEL bilirubin, total 0.5 mg/dL 0.1-1. 2 normal Not Available [facility] [address] [place] [address], [address], 04/05/2024 11:49:01 04/05/20 24 04/05/2024 COMP. METAB OLIC PANEL alkaline phosphatase 95 U/L 30-121 normal Not Available [facility] [address] [place] [address], [address], 04/05/2024 11:49:01 04/05/20 24 04/05/2024 COMP. METAB OLIC PANEL AST 21 U/L 0-32 normal Not Available [facility] [address] [place] [address], [address], 04/05/2024 11:49:01 04/05/20 24 04/05/2024 COMP. METAB OLIC PANEL ALT 21 U/L 0-33 normal Not Available [facility] [address] [place] [address], [address], 04/05/2024 11:49:01 04/05/20 24 04/05/2024 COMP. METAB OLIC PANEL GFR 125 >= 60 normal NOT E New calcu latio n for GFR (CKD- EPI 2020) is formu lated witho ut race adjus tment facto rs at the recom menda tion of the Juan J irizarry and Jhonatan Turner ty of Nephr ology . This calcu latio n has not been valid ated in pregn ant women . For pedia tric patie nts refer to https ://babita w.rossy benitez.o rg/pr ofess ional s/KDO QI/gf r_cal culat orPed Not Available [facility] [address] [place] [address], [address], 04/05/2024 11:49:01 04/05/20 24 04/08/2024 ACTH acth 13 pg/mL 6-50 normal Refer ence range appli es only to the speci mens colle cted betwe en 7am-1 0am. Not Available [facility] [address] [place], [address], 04/08/2024 19:01:58 06/20/19 25 06/19/2024 PROLA CTIN prolactin 8.64 NG/mL 4.79-2 3.30 normal Refer ence range is based on non-p regna nt women . Not Available [facility] [address] [place] [address], [address], 06/19/2024 09:41:18 09/28/19 25 09/27/2024 PROLA CTIN prolactin 2.48 NG/mL 4.79-2 3.30 low Refer ence range is based on non-p regna nt women . Not Available [facility] [address] [place], [address], 09/27/2024 09:56:31 11/01/19 25 10/31/2024 PROLA CTIN prolactin 4.10 NG/mL 4.79-2 3.30 low Refer ence range is based on non-p regna nt women . Not Available [facility] [address] [place] [address], [address], 10/31/2024 09:18:27 02/28/20 25 02/27/2025 PROLA CTIN prolactin 9.03 NG/mL 4.79-2 3.30 normal Refer ence range is based on non-p regna nt women . Not Available [facility] [address] [place], [address], 02/27/2025 09:18:43 05/15/1905/15/2024 MRI, brain + pitui tary, w/wo contr ast [facility] [address] [facility] [place] [address] Pauline walsh Name: KIP walsh : 1999 Pauline walsh 08 Orderi ng Provid er: MARYAM CRAWFORD EXAM DATE: 2024 EXAM: MR BRAIN/ PITUIT ELIER W/WO CONTRA ST HISTOR Y: 24-yea r-old female with headac hes, amenor christiane, and hyperp rolact inemia . COMPAR GEOVANNA: None. The patiteetee t did not requir e sedati on for this exam. No POC testin g for eGFR was perfor med due to absenc e of risk factor s. FINDIN GS: The ventri cles are symmet mitzy and normal in size. There is no intrap arench ymal mass. There is no abnorm al extra- axial fluid, intrac ranial hemorr irma, or infarc tion. The diffus ion weight ed sequen erica are normal . There are no perive ntricu lar white matter change s. There is a cystic lesion in the anteri or and right parace ntral aspect of the pituit elier gland. This measur es approx imatel y 6 x 6 x 4 mm. The pituit elier stalk is midlin e. There is no invasi on of the cavern ous sinuse s. After intrav enous admini strati on of 7.[address] ([facility] [address]-0 1), there is no abnorm al enhanc ement or discre te enhanc ing mass in the brain. There is no enhanc ement of the cystic appear ing lesion in the pituit elier gland. The project internship al caroti d and basila r flow-v oids are normal . There is minima l mucosa l thicke rayo in the parana kait sinuse s. There is a small amount of fluid in the right mastoi d air cells. IMPRES AYLIN: 1. There is a cystic -appea ring lesion in the anteri or aspect of the pituit elier gland which may repres ent a cystic pituit elier microa denoma or benign cyst. 2. The brain is otherw ise normal in appear ance. Interp reted By: Mile cardona MD Electr onical ly Signed By: Mile cardona MD on 025 9:[address] Rad[address], [address], 05/16/2024 16:33:05 Result Notes Documentation Provider Name and Address Organization Details Recorded Time Mri, Brain + Pituitary, W/wo Contrast : [address] [address] Patient Name: KIP THOMAS Patient : 2000 Patient Ordering Provider: MARYAM CRAWFORD EXAM DATE: 05/15/2024 EXAM: MR BRAIN/PITUITARY W/WO CONTRAST HISTORY: 24-year-old female with headaches, amenorrhea, and hyperprolactinemia. COMPARISON: None. The patient did not require sedation for this exam. No POC testing for eGFR was performed due to absence of risk factors. FINDINGS: The ventricles are symmetric and normal in size. There is no intraparenchymal mass. There is no abnormal extra-axial fluid, intracranial hemorrhage, or infarction. The diffusion weighted sequences are normal. There are no periventricular white matter changes. There is a cystic lesion in the anterior and right paracentral aspect of the pituitary gland. This measures approximately 6 x 6 x 4 mm. The pituitary stalk is midline. There is no invasion of the cavernous sinuses. After intravenous administration of 7.5 mL Gadavist ([facility] [address]-60), there is no abnormal enhancement or discrete enhancing mass in the brain. There is no enhancement of the cystic appearing lesion in the pituitary gland. The internal carotid and basilar flow-voids are normal. There is minimal mucosal thickening in the paranasal sinuses. There is a small amount of fluid in the right mastoid air cells. IMPRESSION: 1. There is a cystic-appearing lesion in the anterior aspect of the pituitary gland which may represent a cystic pituitary microadenoma or benign cyst. 2. The brain is otherwise normal in appearance. Interpreted By: Mik Bush MD AM CRAWFORD, DAY WORKER [address] [place] [address], [phone], [facility] 05/16/2024 16:33:05 Problems Name Problem SNOMED Code Status Onset Date Resolution Date Notes Provider Name and Address Organization Details Recorded Time Hyperprolactin emia 731209414 Active 2023 ELI CERVANTES MD [address] [place], [place] [id number] 4 14:02:48 Pituitary microadenoma 153069349 Active 2024 STEFAN CERRATO PA-C [address] [place] [address], [phone], [facility] 5 13:01:51 Problem Notes Documentation Provider Name and Address Organization Details Recorded Time Endocrinology Consult Note : [place] [id number] DIAZ (Legal name: Kip Harrison) (id #[id number], : 2000) [address] [address] Encounter Summary - Progress Note Date Printed: 06/21/2024 Documents sent via fax will include the [...] received this fax in error, please visit [email or web address] to notify the sender and confirm that the information will be destroyed. If you do not have internet access, please call to notify the sender and confirm that the information will be destroyed. Thank you for your attention and cooperation. 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 Patient states since starting therapy she has noticed a significant decrease in symptoms associated with hyperprolactinemia. He does state compliance with medication and denies any associated side effects. Voices no questions or concerns at this time. Review of SystemsROS as noted in the HPI Vitals Ht: 5 ft 1 in06/21/2024 02:36 pm Wt: 145 lbs 4 oz06/21/2024 02:36 pm BMI: 27.403 02:36 pm BP: 106/68 sitting R arm06/21/2024 02:40 pm Pulse: 65 bpm [id number]/21/2024 02:40 pm Results/InterpretationsNone recorded Physical ExamConstitutional:General Appearance: healthy-appearing, well-nourished, and well-developed. Level of Distress: NAD. Ambulation: ambulating normally. Psychiatric:Insight: good judgement. Mental Status: normal mood and affect and active and alert. Orientation: to time, place, and person. Memory: recent memory normal and remote memory normal. Head:Head: normocephalic and atraumatic. Eyes:Lids and Conjunctivae: no discharge or pallor and non-injected. Pupils: PERRLA. EOM: EOMI. ENMT:Ears: no lesions on external ear. Hearing: no hearing loss. Nose: no lesions on external nose and nares patent. Lips, Teeth, and Gums: no mouth or lip ulcers or bleeding gums and normal dentition. Oropharynx: no erythema or exudates and moist mucous membranes. Neck:Neck: supple, trachea midline, and no masses. Lymph Nodes: no cervical LAD, supraclavicular LAD, or axillary LAD. Thyroid: no enlargement or nodules and non-tender. Lungs:Respiratory effort: no dyspnea. Percussion: no dullness, flatness, or hyperresonance. Auscultation: breath sounds normal and good air movement. Cardiovascular:Apical Impulse: not displaced. Heart Auscultation: normal S1 and S2 and RRR. Neck vessels: no carotid bruits. Pedal Pulses: normal throughout. Abdomen:Bowel Sounds: normal. Inspection and Palpation: no tenderness or guarding and soft and non-distended. Liver: non-tender. Spleen: non-tender. Musculoskeletal::Motor Strength and Tone: normal tone and motor strength. Joints, Bones, and Muscles: no contractures, malalignment, tenderness, or bony abnormalities and normal movement of all extremities. Extremities: no cyanosis or edema. Neurologic:Gait and Station: normal gait and station. Sensation: grossly intact. Reflexes: DTRs 2+ bilaterally throughout. Skin:Inspection and palpation: no rash, lesions, or ulcer and good turgor. Nails: normal. Back:Thoracolumbar Appearance: normal curvature. Procedure DocumentationNone recorded Assessment and Plan1. Pituitary microadenoma-On March 23, 2024 lab work showed:Prolactin 120MRI brain with attention to pituitary from May 15, 2024 shows:IMPRESSION: 1. There is a cystic-appearing lesion in the anterior aspect of the pituitary gland which may represent a cystic pituitary microadenoma or benign cyst.Patient currently taking cabergoline 0.25 mg twice a week and is tolerating without difficulty. Patient states significant improvement in symptoms associated with hyperprolactinemia. Most recent labs from June 19, 2024 show prolactin level now within normal range 8.64. Recommendations We will continue current cabergoline therapy at 0.25 mg twice a week. Will follow-up in office in 3 months and repeat lab work. Patient states understanding of the above plan of care and with no questions or concerns at this time.D35.2: Benign neoplasm of pituitary gland cabergoline 0.5 mg tablet - Take 0.5 tablet(s) twice a week by oral route for 90 days. Qty: (13) tablet Refills: 0 [facility]: [facility] Return to Office MARYAM CRAWFORD APRN for RECHECK at ENDOCRINOLOGY on 09/27/2024 at 08:00 AM ELI JACOBS MD for ANNUAL CORE WINDER at [facility] on 04/02/2025 at 03:45 PM Patient Medical History: Allergies List Reviewed Allergies NKDA Medications Reviewed Medications NameDate Source cabergoline 0.5 mg tabletTake 0.5 tablet(s) twice a week by oral route for 90 days. Note:Take 1/2 tablet every Wednesday and .06/21/24 prescribed MARYAM CRAWFORD APRN clotrimazole-betamethasone 1 %-0.05 % topical creamAPPLY TO THE AFFECTED AND SURROUNDING AREAS OF SKIN BY TOPICAL ROUTE 2 TIMES PER DAY IN THE MORNING AND EVENING FOR 2 WEEKS Internal Note:PRN105/24/23 prescribed STEFAN CERRATO PA-C Family HistoryReviewed Family History Maternal Grandmother - Diabetes mellitus Past Medical HistoryReviewed Past Medical History Asthma:Y-As a child Vaccine HistoryNone recorded Electronically Signed by: MARYAM CRAWFORD APRN, DOCUMENT PREPARER MICROFILMING STEFAN CERRATO PA-C [address] [place] [address], [phone], [facility] 06/21/2024 15:37:35 Endocrinology Consult Note : [address] [address]OCHFZBushra DIAZ (Legal name: Kip Harrison) (id #[id number], : 2000) [address] [address] Encounter Summary - Progress Note Date Printed: 09/27/2024 Documents sent via fax will include the [...] received this fax in error, please visit [email or web address] to notify the sender and confirm that the information will be destroyed. If you do not have internet access, please call to notify the sender and confirm that the information will be destroyed. Thank you for your attention and cooperation. [ID:[id number]] Patient Miguel CamilouezKip (24yo, F) #[id number] 2000 Patient Demographics: Address [address] [place] [address] Work Phone Encounter Notes: Encounter Reason/DateNone recorded 09/27/2024 - 08:00AM - ENDOCRINOLOGY [facility] History of Present IllnessSophie is a 24-year-old female who presents office today for follow-up on hyperprolactinemia currently on cabergoline therapy and tolerating without difficulty. Review of SystemsROS as noted in the HPI Vitals Ht: 5 ft 1 in09/27/2024 08:11 am Wt: 138 lbs 3.2 oz With [id number]/27/2024 08:11 am BMI: 26.106 08:11 am BP: 112/72 sitting L arm09/27/2024 08:13 am Results/InterpretationsNone recorded Physical ExamConstitutional:General Appearance: healthy-appearing, well-nourished, well-developed, not [...] attention to pituitary from May 15, 2024 shows:IMPRESSION: 1. There is a cystic-appearing lesion in the anterior aspect of the pituitary gland which may represent a cystic pituitary microadenoma or benign cyst. Patient currently taking cabergoline 0.25 mg twice a week and is tolerating without difficulty.She does state improvement in symptoms associated with hyperprolactinemia, however she is with complaints of occasional headache.Most recent labs from June 19, 2024 show prolactin level now within normal range 8.64. RecommendationsWill obtain prolactin level today call patient with these results.We will continue current cabergoline therapy at 0.25 mg twice a week.Will follow-up in office in 4 months and repeat lab work. Patient states understanding of the above plan of care and with no questions or concerns at this time.D35.2: Benign neoplasm of pituitary gland cabergoline 0.5 mg tablet - Take 0.5 tablet(s) twice a week by oral route for 90 days. Qty: (13) tablet Refills: 1 [facility]: [facility] Return to Office MARYAM CRAWFORD APRN for RECHECK at ENDOCRINOLOGY SB on 01/31/2025 at 08:15 AM ELI JACOBS MD for ANNUAL CORE WINDER at [facility] on 04/02/2025 at 03:45 PM Patient Medical History: Allergies List Reviewed Allergies NKDA Medications Reviewed Medications NameDate Source cabergoline 0.5 mg tabletTake 0.5 tablet(s) twice a week by oral route for 90 days. Note:Take 1/2 tablet every Wednesday and .09/27/24 prescribed MARYAM CRAWFORD APRN clotrimazole-betamethasone 1 %-0.05 [...] recorded Electronically Signed by: MARYAM CRAWFORD APRN, DOCUMENT PREPARER MICROFILMING STEFAN CERRATO PA-C [address] [place] [address], [phone], [facility] 09/27/2024 08:39:36 Endocrinology Consult Note : [address] [address]XIWFDBushra DIAZ (Legal name: Kip Harrison) (id #[id number], : 2000) [address] [address] Encounter Summary - Progress Note Date Printed: [...] received this fax in error, please visit [email or web address] to notify the sender and confirm that the information will be destroyed. If you do not have internet access, please call to notify the sender and confirm that the information will be destroyed. Thank you for your attention and cooperation. [ID:[id number]] Patient Kip Cain (25yo, F) #[id number] 2000 Patient Demographics: Address [address] [address] Work Phone Encounter Notes: Encounter Reason/DateNone recorded [...] days. Qty: (7) tablet Refills: 1 [facility]acy: [facility] NEUROLOGIST REFERRAL - Schedule Within: provider's discretion Note to Provider: frequent headaches with normal prolactin levels. history of pituitary microadenoma.Place of service: OFFICE Procedure code: 65631, [address], 85772, 62819, [address], 13938, 85874, [address] Return to Office ELI JACOBS MD for ANNUAL CORE WINDER at [facility] on 04/02/2025 at 03:45 PM MARYAM CRAWFORD APRN for RECHECK at ENDOCRINOLOGY SB on 06/05/2025 at 01:30 PM Patient Medical History: Allergies List Reviewed Allergies NKDA Medications Reviewed Medications NameDate Source cabergoline 0.5 mg tabletTake 0.5 tablet(s) every week by oral route for 90 days. Note:Take 1/2 tablet every Rxmdgh38/11/25 prescribed MARYAM CRAWFORD APRN clotrimazole-betamethasone 1 %-0.05 [...] recorded Electronically Signed by: MARYAM CRAWFORD APRN, DOCUMENT PREPARER MICROFILMING STEFAN CERRATO PA-C [address] [place] [address], [phone] 02/27/2025 13:01:55 Medical Equipment None Reported. [...] height Body mass index (BMI) Body weight Systolic And Diastolic Provider Name and Address Organization Details Last Updated DateTime 05/19/2024 154.94 cm 27.8 kg/m2 24430.08 g 118/76 mm[Hg] Francia Shah [facility] 05/19/2024 15:18:50 Date Recorded Body height Body mass index (BMI) Body weight Heart rate Systolic And Diastolic Provider Name and Address Organization Details Last Updated DateTime 06/21/2024 154.94 cm 27.4 kg/m2 39162.29 g 65 /min 106/68 mm[Hg] Mari Lim [facility] 06/21/2024 14:40:20 Date Recorded Body height Body mass index (BMI) Body weight Systolic And Diastolic Provider Name and Address Organization Details Last Updated DateTime 09/27/2024 154.94 cm 26.1 kg/m2 89649.47 g 112/72 mm[Hg] Cory Saez [facility] 09/27/2024 08:13:06 Date Recorded Body height Body mass index (BMI) Body weight Heart rate Systolic And Diastolic Provider Name and Address Organization Details Last Updated DateTime 02/27/2025 154.94 cm 28.3 kg/m2 75814.86 g 76 /min 118/70 mm[Hg] Joelle Priestg [facility] 02/27/2025 08:39:26 Date Recorded Body height Body mass index (BMI) Body weight Systolic And Diastolic Provider Name and Address Organization Details Last Updated DateTime 04/04/2024 154.94 cm 28.2 kg/m2 72364.26 g 118/76 mm[Hg] Melva Terrell [facility] 04/04/2024 09:36:12 Social History Question Answer Notes LastModified by [employer] ion Details LastModified Time Tobacco Smoking Status [facility] 03/23/2024 15:09:10 What Is Your Level Of Caffeine Consumption? None Information not available 03/28/2024 What Was The Date Of Your Most Recent Tobacco Screening? 03/28/2024 Information not available 03/28/2024 What Is Your Relationship Status? Single [email or web address] Information not available 03/23/2024 Has Tobacco Cessation Counseling Been Provided? No Information not available 03/28/2024 Sex: Female Functional Status Question Answer Note LastModified by Organizat ion Details LastModified Time Do you use any illicit or recreational drugs? No [email or web address] Information not available 03/23/2024 Do you or have you ever used any other forms of tobacco or nicotine? No Information not available 03/23/2024 What is your level of alcohol consumption? None [email or web address] Information not available 03/23/2024 Mental Status None recorded. Family History Relationship Description Onset Age of this Age Resolved Age Notes LastModified by Organization Details LastModified Time Maternal Grandmother Diabetes mellitus [email or web address] Not available 03/23 15:08:54 Medical History Condition Response Coronary Artery Disease N Other N Gout N Atrial Fibrillation N Kidney Stones N Hyperthyroidism N Blood Transfusion N Hypothyroidism N Lung Disease N Depression N COPD N Breast Problem N Difficulty Swallowing N Anxiety Disorder N Meniere's disease N Muscle, Joint, or Bone Problems N Vision or Eye Problems Y Arthritis N Infertility N Polyps N Blood Clot N Cancer N Stroke N Varicosities N Endometriosis N Bladder or Kidney Problems N High Cholesterol N Liver Disease N Fibromyalgia N Headaches Y Kidney Disease N Allergies/Hayfever N Heart Problems N Parkinson's Disease N Ear or Hearing Problems N Hospitalizations N Alzheimer's N Thyroid Problems N GI Problems N Eating Disorder N Skin Problems Y Anemia N Constipation Y Mental Illness N Diabetes N Ovarian Cancer N Seizures/Epilepsy N Tuberculosis N Eczema Y Diverticulitis N Asthma Y Reflux/GERD Y Sleep Apnea N GERD/Reflux Y Hepatitis N Heart Disease N Pulmonary Embolism N Chronic Ear Infections N Pre-Eclampsia N Hypertension N Chicken Pox Y Osteoporosis N Thrombophilias N Gynecological History Statement/Question Response Abnormal [...] Recorded Time Tdap 6 completed Not Available [facility] 02/27/2025 12:44:34 meningococcal MCV4, unspecified formulation 9 completed Not Available [facility] 02/27/2025 12:44:34 DTaP-Hep B-IPV 9 completed Not Available [facility] 02/27/2025 12:44:34 Hep A, ped/adol, 2 dose 9 completed Not Available [facility] 02/27/2025 12:44:34 MMRV 9 completed Not Available [facility] 02/27/2025 12:44:34 Pneumococcal conjugate PCV 13 9 completed [facility] 02/27/[facility] 12:44:34 HPV9 9 completed Not Available [facility] 02/27/2025 12:44:34 meningococcal B, OMV 9 completed Not Available [facility] 02/27/2025 12:44:34 IPV 9 completed Not Available [facility] 02/27/2025 12:44:34 Hep B, adolescent or pediatric 9 completed Not Available [facility] 02/27/2025 12:44:34 meningococcal B, OMV 9 completed Not Available [facility] 02/27/2025 12:44:34 HPV9 9 completed Not Available [facility] 02/27/2025 12:44:34 Past Encounters Encounter ID Performer Location Encounter Start Date Encounter Closed Date Diagnosis/Indication Diagnosis SNOMED-CT Code Diagnosis ICD10 Code Diagnosis IMO Codes Diagnosis Note [id number] STEFAN CERRATO PA-C [facility] [address] [place] [address] 03/23/2024 14:58:30 03/23/2024 15:49:06 Acute dermatitis 75915622 L30.9 Risks and benefits of the new medication discussed with patient, along with reasonable alternativ es. Patient has voiced understand ing and is in agreement with treatment choice. Amenorrhea 17781884 N91. 2 [id number] ELI GUTIÉRREZ MD [facility] [address] [place] [address] 03/28/2024 13:15:53 03/28/2024 16:30:21 Screening for malignant neoplasm of cervix 155225051 Z12.4 Hyperprolactinemia 92640 2004 E22.1 recommend rechecking fasting prolactin. if still elevated will order head MRI. Gynecologi c examination 48481805 Z01.419 Annual pap smear with GC/CT screening done today. Encourage exercise, diet and healthy lifestyle choices. Reviewed Gardasil vaccine. encourage condoms for contracept ion until the elevated prolactin is fully evaluated. [id number] MARYAM CRAWFORD APRN ENDOCR[facility] [address] [place] [address] 04/04/2024 09:30:33 04/04/2024 10:13:41 Hyperprolactinemia 634606463 E22.1 On March 23, 2024 lab work showed:Pro lactin 120HCG negativeFS H 7.3Estroge n 34.4LH 10.7TSH 0.738Patie nt has been experienci ng amenorrhea for 2 years.She does complain of galactorrh ea, weight gain, headaches, and hot flashes.Jose flores denies any possibilit y of . Patient denies any control, steroid, or use of medication s that can cause elevated prolactin levels. Recommenda tionWill check morning cortisol, prolactin, CMP, ACTH, fasting insulin, DHEA, testostero ne.Will call patient with these results to discuss further exudate and plan of care. Patient states understand ing of the above plan of care and with no questions or concerns at this time. [id number] MARYAM CRAWFORD APRN ENDOCRINO [facility] [address] [place] [address] 05/19/2024 15:08:47 05/19/2024 16:02:12 Pituitary microadenoma 327613860 D35.2 On March 23, 2024 lab work showed:Pro lactin 120GFR 125Pregnan cy test negative MRI brain with attention to pituitary from May 15, 2024 shows:IMPR ESSION:1. There is a cystic-francia earing lesion in the anterior aspect of thepituita ry gland which may represent a cystic pituitary microadeno ma orbenign cyst. 2. The brain is otherwise normal in appearance .Patient does continue to exhibit symptoms consistent with this diagnosis. Patient was educated on treatment for this and we will be starting cabergolin e 0.25 mg twice a week.Utee nt educated on cabergolin e therapy, how to administer , potential side effects.We will repeat lab work on June 19, 2024 and follow-up in office June 21, 2024 to discuss lab results and patient's symptoms. Patient states understand ing of the above plan of care and with no questions or concerns at this time. [id number] MARYAM CRAWFORD APRN ENDOCRINO [facility] [address] [place] [address] 06/21/2024 14:27:48 06/21/2024 15:25:10 Pituitary microadenoma 314874919 D35.2 On March 23, 2024 lab work showed:Pro lactin 120MRI brain with attention to pituitary from May 15, 2024 shows:IMPR ESSION: 1. There is a cystic-francia earing lesion in the anterior aspect of the pituitary gland which may represent a cystic pituitary microadeno ma or benign cyst.Patie nt currently taking cabergolin e 0.25 mg twice a week and is tolerating without difficulty . Patient states significan t improvemen t in symptoms associated with hyperprola ctinemia. Most recent labs from June 19, 2024 show prolactin level now within normal range 8.64. Recommenda tions We will continue current cabergolin e therapy at 0.25 mg twice a week. Will follow-up in office in 3 months and repeat lab work. Patient states understand ing of the above plan of care and with no questions or concerns at this time. [id number] MARYAM CRAWFORD APRN ENDOCRINO [facility] [address] [place] [address] 09/27/2024 08:08:20 09/27/2024 08:40:47 Pituitary microadenoma 294954344 D35.2 Initial prolactin 120 March 2024MRI brain with attention to pituitary from May 15, 2024 shows:IMPR ESSION: 1. There is a cystic-francia earing lesion in the anterior aspect of the pituitary gland which may represent a cystic pituitary microadeno ma or benign cyst. Patient currently taking cabergolin e 0.25 mg twice a week and is tolerating without difficulty .She does state improvemen t in symptoms associated with hyperprola ctinemia, however she is with complaints of occasional headache.M ost recent labs from June 19, 2024 show prolactin level now within normal range 8.64. Recommenda tionsWipro obtain prolactin level today call patient with these results.We will continue current cabergolin e therapy at 0.25 mg twice a week.Will follow-up in office in 4 months and repeat lab work. Patient states understand ing of the above plan of care and with no questions or concerns at this time. [id number] MARYAM CRAWFORD APRN ENDOCRINO [facility] [address] [place] [address] 02/27/2025 08:26:57 02/27/2025 09:09:50 Pituitary microadenoma 287121832 D35.2 Initial prolactin 120 March 2024MRI brain [...] by Organization Details LastModified Time None Recorded Advance Directives Directive None Recorded Payers Insurance Date Sequence Insurance Name Policy Number Policy Bray Covered Member ID Bray Member ID Guarantor Name 03/02/2025 1 [facility] [id number] Kip Harrison [id number] Kip Harrison 02/27/2025 1 *SELF PAY* So milagros Harrison 02/27/2025 1 [employer] Kip Harrison [id number] Kip Harrison 03/02/2025 1 [facility] C[employer] (PPO) [id number] Kip Harrison [id number] Kip Harrison 03/21/2024 1 [employer] (PPO) Kip Thomas [id number] Kip Harrison 02/19/[address] [facility] - [employer] (PPO) [id number] Kip Harrison [id number] Kip Harrison Notes Date Note Type Note Provider Name and Address Organization Details Recorded Time 04/04/2024 text/html Tressa is a 24-year-old female who presents office today after referral for management of hyperprolactinemia. Patient does have symptoms associated with elevated prolactin levels including amenorrhea for 2 years, galactorrhea, weight gain, headaches, and hot flashes. Patient denies any possibility of at this time. Patient also denies any use of control, steroid, or use of medications that can cause elevated prolactin levels. MARYAM CRAWFORD APRN [address] [place], [address], [facility] 04/04/2024 10:12:24 05/19/2024 text/html ROS as noted in the HPI Patient presents office today to discuss MRI results and new diagnosis of pituitary microadenoma. MARYAM CRAWFORD APRN [address] [place], [address], [facility] 05/19/2024 15:58:37 06/21/2024 text/html ROS as noted in the HPI Bushra is a 24-year-old female presents office today for management of pituitary macroadenoma currently on cabergoline therapy. Patient states since starting therapy she has noticed a significant decrease in symptoms associated with hyperprolactinemia. He does state compliance with medication and denies any associated side effects. Voices no questions or concerns at this time. MARYAM CRAWFORD APRN [address] [place], [address], [facility] 06/21/2024 15:20:25 09/27/2024 text/html ROS as noted in the HPI Tressa is a 24-year-old female who presents office today for follow-up on hyperprolactinemia currently on cabergoline therapy and tolerating without difficulty. MARYAM CRAWFORD DAY WORKER [address] [place], [address], [facility] 09/27/2024 08:34:38 02/27/2025 text/html ROS as noted in the HPI Tressa is a 25-year-old female presents office today for follow-up on pituitary microadenoma, currently on cabergoline therapy at 0.25 mg once a week and is tolerating without difficulty.She does state some improvement in symptoms associated with hyperprolactinemia and states menstrual cycles have returned, however she does continue to report frequent headaches. MARYAM CRAWFORD APRN [address] [place], [id number], [facility] 02/27/2025 12:33:36 OBGyn Episode No OBEpisode recorded.
[2025-03-14 00:27] VITALS: BP 147/83; PULSE 100; RESP 17; TEMP 36.7; O2SAT 95
== END 2025-03-14 00:30 | disposition home or self-care (01) ==
PROVIDERS: Emergency Provider Emergency Medicine
DX: L50.1 Idiopathic urticaria (principal)
CPT/HCPCS: 99282